=== PATIENT | male | born 1960 | race Caucasian/White ===

== ENCOUNTER 2016-11-22 17:18 | Emergency (ER) | payer MEDICARE ==
[2016-11-22 18:03] VITALS: BP 130/89; PULSE 89; TEMP 98.5; BMI 23.6
[2016-11-22] MEDS ORDERED: OXYCODONE HCL 5 MG TABLET PO ONE (18:31)
--- NOTE | 2016-11-22 18:33 | EDPRACDOC ---
- General Information Chief Complaint: Nausea,Vomiting,Diarrhea Stated Complaint: DIARRHEA Time Seen by Provider: 11/22/16 18:21 Information Source: Patient Home Medications: Home Medications Amitriptyline HCl [Elavil] 50 mg PO HS 05/08/16 Amlodipine [Norvasc] 10 mg PO DAILY 05/08/16 Glipizide 10 mg PO BID 05/08/16 Lisinopril [Zestril] 20 mg PO QHS 05/08/16 MetFORMIN (Immediate Release) [GLUCOPHAGE Immed Release] 500 mg PO BID 05/08/16 Acetaminophen Tablet [TYLENOL Tablet] 650 mg PO Q6H PRN #100 tablet 07/08/16 Carvedilol [Coreg] 3.125 mg PO BID #60 tablet 07/08/16 Nitroglycerin Sublingual Tab [NTG (NitroStat Sublingual Tab)] 0.4 mg SL Q5MIN PRN #30 tablet 07/08/16 Thiamine [Thiamine, Vitamin B-1] 100 mg PO DAILY@1200 #30 tablet 07/08/16 Oxycodone HCl [Oxycodone Immediate Release] 15 mg PO QID #7 days 11/22/16 Allergies/Adverse Reactions: Allergies Allergy/AdvReac Type Severity Reaction Status Date / Time No Known Allergies Allergy Verified 07/02/16 20:04 - History of Present Illness Onset: 3-4 days HPI: PT PRESENTS TODAY WITH NAUSEA, DIARRHEA, AND GENERAL MALAISE X 1 WEEK. PT STATES HE HAS BEEN OUT OF HIS PAIN MEDICATION THAT HE HAS BEEN TAKING FOR 20 YEARS. STATES WAS UNABLE TO MAKE HIS APPT WITH PCP D/T THE SNOW. NO APPARENT DISTRESS AT THIS TIME. Symptoms Occured: Reports: Possibly Med Related Recent: Reports: None Pain Quality: Reports: Cramping Pain Severity: Mild Pain Location: Reports: Diffuse Relevant History of: Reports: None Associated Signs and Symptoms: Reports: Diarrhea Oral Intake: Normal Urinary Output: Normal - Treatment Prior to ED Arrival Reported Medications/Treatment [facility] Treatment BLS IV No ED Past Medical History - History Reviewed Yes Nurses notes reviewed and agree except as marked - Patient Medical History Neurological History: Denies: Cerebrovascular Accident, Seizures Cardiac History: Reports: Hypertension, Stress Test (6-10 YRS AGO), Hypercholesterolemia. Denies: Atrial Fibrillation, Cardiac Catheterization Respiratory History: Reports: COPD. Denies: Asthma, Cough, Emphysema GI/ History: Reports: Renal Disease (CKD Stage 3, Baseline Cr 1.5 - 2.4.), Kidney Stones, Gastroesophageal Reflux. Denies: Ulcer Musculoskeletal History: Reports: Arthritis, Osteoarthritis. Denies: Rheumatoid Arthritis Psychological History: Reports: Depression. Denies: Anxiety, Substance Use Disorder Systemic History: Reports: Diabetes. Denies: Cancer Surgical History: Reports: Cholecystectomy, Tonsillectomy/Adnoidectomy. Denies : Cardiac Catheterization - Family Medical History Reports: Diabetes (Mother), Cancer (Father, brother), Cardiac Disorders (Father , Mother). Denies: Stroke - Social Medical History Smoking Status: Never smoker Social History: Denies: Substance Use Disorder EDM Review of Systems - Review of Systems ROS Negative Except as Marked: Yes All systems reviewed and were negative except as marked Constitutional: Fatigue Eyes: No Symptoms Reported Ears: No Symptoms Reported Throat: No Symptoms Reported Nose: No Symptoms Reported Respiratory: No Symptoms Reported Cardiovascular: No Symptoms Reported Gastrointestinal: Diarrhea, Pain Genitourinary: No Symptoms Reported Neurological: No Symptoms Reported Musculoskeletal: No Symptoms Reported Integumentary: No Symptoms Reported - Physical Exam Constitutional: Alert (Awake), No apparent distress Oriented to: Time, Person, Place Last recorded Vital Signs: Last Vital Signs Temp 98.5 F 11/22/16 17:58 Pulse 89 11/22/16 17:58 Resp 16 11/22/16 17:58 BP 130/89 11/22/16 17:58 Pulse Ox 98 11/22/16 17:58 Oxygen Pulse Oxygen Saturation 98 O2 Device Room Air Oxygen Flow Rate Fraction of Inspired Oxygen ( FIO2) - HEENT Head: Normal Eye Exam: Normal Neck: Normal, Denies Pain, Midline - Respiratory/Cardiovascular Respiratory: Normal - CTA Cardiovascular: Normal - GI Palpation: Normal Tenderness: Non tender - Musculoskeletal Back: Normal Extremities: Normal - Integumentary Skin: Normal Lymphatics: Normal - Neurologic Cerebellar: Normal Mood Description: Normal Thought: Coherent Perception: Normal - Additional Information VSS; PT DENIES ABD PAIN AT THIS TIME; NO TREMORS NOTED; NO ACUTE FINDINGS OF WITHDRAWAL Decision Time to Discharge: 18:32 - Departure Disposition: Home Condition: Good Final Diagnosis: Diarrhea Qualifiers: Diarrhea type: unspecified type Qualified Code(s): R19.7 - Diarrhea, unspecified Medication withdrawal Qualifiers: Substance type: opioid Qualified Code(s): F11.23 - Opioid dependence with withdrawal Instructions: Acute Diarrhea (ED) Education/Counseling Given To: Patient Education/Counseling Given Regarding: Diagnosis, Treatment, Follow Up Referrals: None,No Provider [Primary Care Provider] - One Week Prescriptions: Oxycodone HCl [Oxycodone Immediate Release] 15 mg PO QID #7 days Additional Instructions: PLEASE FOLLOW UP WITH PCP REGARDING MEDICATION REFILLS.
== END 2016-11-22 18:41 | disposition home or self-care (01) ==
LOC: ED 17:18 → EDMC 18:41
DX: F11.23 Opioid dependence with withdrawal (principal); R19.7 Diarrhea, unspecified
CPT/HCPCS: 99283; A9270; J3490